=== PATIENT | female | born 1955 | race Caucasian/White ===

== ENCOUNTER 2024-01-30 08:48 | Outpatient (CLI) | payer OTHER, SELFPAY ==
[2024-01-30 10:09] LABS: Hemoglobin A1C 9.1 % (<5.7)
== END 2024-01-30 08:49 | disposition home or self-care (01) ==
LOC: ANHLAB 08:58
PROVIDERS: PCP Nurse Practitioner; Visit Provider Nurse Practitioner
DX: E11.65 Type 2 diabetes mellitus with hyperglycemia (principal)
CPT/HCPCS: 36415; 83036